=== PATIENT | male | born 1990 ===

== ENCOUNTER 2021-11-05 09:19 | Emergency (ER) | payer OTHER ==
[~2021-11-05] VITALS: Ht 177.8 cm; Wt 76.4 kg
[2021-11-05 09:24] VITALS: BP 134/99
--- NOTE | 2021-11-05 09:47 | PHYS DOC ---
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 Patient reports he noticed bleeding, applied a bandage and pressure and came to the emergency department for evaluation. Patient reports a 1 out of 10 pain. Denies numbness or tingling to his right thumb. Denies other injury to his body. Reports his last tetanus immunization was greater than 5 years ago. Patient denies taking pain medications or tried nonpharmacological pain relief methods prior to arrival to the emergency department. Patient denies allergies to medications, is not taking any prescription medications, primary care at [facility] [place]. Review of Systems: Review of Systems: 14 body systems of review of systems have been reviewed. See HPI for pertinent positives and negative responses, otherwise all other systems are negative, nonpertinent or noncontributory. Constitutional: Negative except as outlined in HPI above. Skin: Negative except as outlined in HPI above. Eyes: Negative except as outlined in HPI above. HENT: Negative except as outlined in HPI above. Respiratory: Negative except as outlined in HPI above. Cardiovascular: Negative except as outlined in HPI above. GI: Negative except as outlined in HPI above. : Negative except as outlined in HPI above. Musculoskeletal: Negative except as outlined in HPI above. Integument: Negative except as outlined in HPI above. Neurologic: Negative except as outlined in HPI above. Endocrine: Negative except as outlined in HPI above. Lymphatic: Negative except as outlined in HPI above. Psychiatric: Negative except as outlined in HPI above. Heart Score: C/O Chest Pain: No Risk Factors: Risk Factors: DM, Current or recent (<one month) smoker, HTN, HLP, family history of CAD, obesity. Risk Scores: Score 0 - 3: 2.5% MACE over next 6 weeks - Discharge Home Score 4 - 6: 20.3% MACE over next 6 weeks - Admit for Clinical Observation Score 7 - 10: 72.7% MACE over next 6 weeks - Early Invasive Strategies Allergies: Allergies: Allergies Coded Allergies Type Severity Reaction Last Updated Verified No Known Drug Allergies 11/05/21 No Physical Exam: PE: Constitutional: Well developed, well nourished, no acute distress, non-toxic appearance. 31-year-old male has right thumb bandage in no apparent distress. HENT: Normocephalic, atraumatic. Eyes: Conjunctiva normal, no discharge. Neck: Normal range of motion, no stridor. Cardiovascular: No cyanosis appreciated, distal cap refill less than 2 seconds. Lungs & Thorax: Patient is in no respiratory distress, normal work of breathing. Abdomen: Nontender, no abnormalities noted. Skin: Warm, dry, no erythema, no rash. See extremity note for focused skin examination Back: No tenderness, no deformities. Extremities: No tenderness, no cyanosis, no clubbing, ROM intact, no edema. Except for right thumb, patient has full skin thickness "L "shaped to centimeter laceration palmar aspect midshaft proximal phalanx skin surfaces, full passive range of motion active range of motion of thumb joints, no tendon visualized through laceration, distal cap refill is less than 2 seconds bilateral upper extremities, bilateral upper extremity 2+ radial pulses. The thumb nail is not involved. Neurologic: Alert and oriented X 3, normal motor function, normal sensory function, no focal deficits noted. Psychologic: Affect normal, judgement normal, mood normal. Current Patient Data: Vital Signs: Vital Signs Date Time Temp Pulse Resp B/P (MAP) Pulse Ox O2 Delivery O2 Flow Rate FiO2 11/05/21 09:24 97.7 97 18 134/99 (111) 97 Room Air 97.7 EKG: EKG: [] Radiology/Procedures: Radiology/Procedures: [] Course & Med Decision Making: Course & Med Decision Making Pertinent Labs and Imaging studies reviewed. (See chart for details) 31-year-old male, vital signs reviewed, presents to the emergency room concerning laceration right thumb palmar aspect. Physical examination is consistent with patient's explanation of events, will bring patient's tetanus immunization up-to-date today in the emergency department, see laceration repair note. Equal strength of both thumbs, full active and passive range of motion of the right thumb joints, no suspicion of tendinous injury. Discussed home suture wound care, sutures out in 7 to 10 days, wear splint, signs and symptoms of infectious process, return to ER precautions and concerns were reviewed, patient gave verbal understanding of and is amenable to ED discharge planning. Discussed with the patient all findings and diagnostic testing as well as the need to follow-up with their primary care provider for further evaluation and treatment or return to the ED if any new or worsening symptoms. Strict return precautions were also discussed at length, the patient voiced understanding and agreement with the discharge planning. The patient was nontoxic in appearance, in no apparent distress, and hemodynamically stable at the time of disposition. Dragon Disclaimer: Dragon Disclaimer: This electronic medical record was generated, in whole or in part, using a voice recognition dictation system. Laceration Repair Lac Repair Indication: Laceration right thumb Time: 10:00 Confirmed: Patient, procedure, side, and site correct. Consent: Patient, has given verbal consent. Description/repair Procedure: The patient was placed in the appropriate position and anesthesia around the laceration was achieved with digital block using 4 cc 1% lidocaine without epinephrine. The area was then cleansed with Betadine solution, vigorously irrigated with 500 cc normal saline, the laceration was explored for foreign bodies, there were no foreign bodies, no tendon tissue appreciated,. The laceration was closed using 4 each interrupted sutures of 4-0 nylon. The wound area was then dressed with bacitracin and bandage by ED nursing staff.. Complexity: Single layer. Post procedure exam: Circulation, motor, sensory examination intact, bleeding controlled. Total repaired wound length: 2 cm. Other Items: There were no other items. The patient tolerated the procedure well. Complications: There were no complications. Performed by: Gerri Randolph, [employer] Supervision: Dr. Ventura was present for consult regarding the critical aspects of the procedure including closure and post procedure exam. Total time: 10 minutes. Departure Departure Impression: Primary Impression: Laceration of right thumb Qualified Codes: S61.011A - Laceration without foreign body of right thumb without damage to nail, initial encounter Additional Impression: Need for Tdap vaccination Disposition: HOME / SELF CARE / HOMELESS Condition: GOOD Patient Instructions: Laceration Care, Adult Additional Instructions: You were seen today in the emergency department for a laceration to your right thumb. This is repaired with 4 sutures that require removal in 7 to 10 days. Please cleanse daily with mild soap and water 2-3 times a day and apply antibiotic ointment, use thumb splint to prevent disruption of sutures, watch for signs symptoms of infectious process we discussed, return to the emergency department for worsening symptoms or other concerns. Your tetanus immunization was brought up-to-date today in the emergency department, you may follow-up with your primary care physician at the [facility] [place] for wound evaluation and suture removal. Thank you for visiting our Emergency Department. It was a pleasure taking care of you today in the emergency department and we appreciate you trusting us with your care. If any additional problems come up don't hesitate to return to visit us. Please follow up with your primary care provider so they can plan additional care if needed and know about the problem that you had. If symptoms worsen come back to the Emergency Department. Any concerning symptoms that start such as chest pain, shortness of air, weakness or numbness on one side of the body, running high fevers or any other concerning symptoms return to the ER. GERRI CARRION APRN Nov 05, 2021 09:47
[2021-11-05] MEDS ORDERED: DIPHTH,PERTUSS(ACELL),TET TOX 0.5 ML DISP.SYRIN. VAX IM ONE (10:00)
[2021-11-05] MEDS ORDERED: BACITRACIN TOPICAL OINT PACKET. TP ONE (10:00)
[2021-11-05] MEDS ORDERED: LIDOCAINE 1% Multi-Dose 20 ML VIAL. INJ ONE (10:00)
== END 2021-11-05 11:05 | disposition home or self-care (01) ==
LOC: ER 09:19
DX: S61.011A Laceration without foreign body of right thumb without damage to nail, initial encounter (principal); Y28.8XXA Contact with other sharp object, undetermined intent, initial encounter; Y93.89 Activity, other specified; Y92.89 Other specified places as the place of occurrence of the external cause; Y99.8 Other external cause status
CPT/HCPCS: 12001; 90471; 90715; 99283; J3490